=== PATIENT | female | born 1980 | race Two or more races ===

== ENCOUNTER 2022-03-12 18:44 | Emergency (ER) | payer BC, OTHER ==
[~2022-03-12] VITALS: Ht 165.1 cm; Wt 60.3 kg
[2022-03-12] MEDS ORDERED: ONDA4TAB11 PO (22:41)
[2022-03-12] MEDS ORDERED: D-ME473S63 PO (22:41)
[2022-03-12] MEDS ORDERED: ONDANSETRON ODT 4 MG TAB.RAPDIS SL ONE (22:45)
[2022-03-12] MEDS ORDERED: ONDANSETRON ODT 4 MG TAB.RAPDIS ONE (22:48)
[2022-03-12 22:57] VITALS: BP 122/78
--- NOTE | 2022-03-12 22:57 | NUR ---
Patient discharged to home in stable condition. Written and verbal after care instructions given. Patient verbalizes understanding of instructions. Stressed follow up or return to ER for worsening s/s.
== END 2022-03-12 22:58 | disposition home or self-care (01) ==
LOC: ER 18:44
DX: J06.9 Acute upper respiratory infection, unspecified (principal); Z20.822 Contact with and (suspected) exposure to COVID-19
CPT/HCPCS: A4663; C1758; Q0162